=== PATIENT | female | born 1965 | race Caucasian/White ===

== ENCOUNTER 2020-03-11 21:52 | Emergency (ER) | payer OTHER ==
[~2020-03-11] VITALS: Ht 160 cm; Wt 77.1 kg
[2020-03-11 23:56] VITALS: BP 135/78
== END 2020-03-11 23:57 | disposition home or self-care (01) ==
LOC: M.ERS 21:52
DX: S63.682A Other sprain of left thumb, initial encounter (principal); Z88.1 Allergy status to other antibiotic agents; Z88.2 Allergy status to sulfonamides; Z88.8 Allergy status to other drugs, medicaments and biological substances; W18.39XA Other fall on same level, initial encounter; Y93.89 Activity, other specified; Y92.481 Parking lot as the place of occurrence of the external cause; Y99.8 Other external cause status